=== PATIENT | male | born 1940 | race Caucasian/White ===

== ENCOUNTER 2019-01-08 06:43 | Day surgery (SDC) | payer MEDICARE, OTHER ==
[2019-01-08] VITALS (8 sets, daily range): BP systolic 127–164; BP diastolic 42–88
[~2019-01-08] VITALS: Ht 177.8 cm; Wt 116.8 kg
[~2019-01-08 06:43] MED LIST: ASPI81TA52 PO; CITA-311 PO; FLO0.4C PO; FURO40TA4 PO; GLIP5TAB13 PO; LISI10TA4 PO; METF500T PO; SIMV40TA4 PO
[2019-01-08] MEDS ORDERED: normal saline 1000ml 1,000 ML IV PRN (07:10)
[2019-01-08] MEDS ORDERED: SITA50TA PO (07:20)
[2019-01-08] MEDS ORDERED: CLOP75TA15 PO (07:20)
[2019-01-08 08:00] LABS: BASOPHILS # (AUTO) 0.1 X10'3 (0-0.2); BASOPHILS % (AUTO) 0.7 % (0-1); EOSINOPHILS # (AUTO) 0.5 X10'3 (0-0.9); EOSINOPHILS % (AUTO) 5.6 % (0-6); HEMATOCRIT 33.4 % (42.0-52.0); HEMOGLOBIN 10.8 g/dl (14.0-17.9); LYMPHOCYTES # (AUTO) 1.3 X10'3 (1.1-4.8); LYMPHOCYTES % (AUTO) 14.4 % (21-51); MEAN CORPUSCULAR HEMOGLOBIN 29.4 PG (27.0-31.0); MEAN CORPUSCULAR HGB CONC 32.3 g/dL (33.0-36.5); MEAN CORPUSCULAR VOLUME 91.2 FL (78-98); MEAN PLATELET VOLUME 8.8 FL (7.4-10.4); MONOCYTES # (AUTO) 0.8 X10'3 (0-0.9); MONOCYTES % (AUTO) 8.2 % (2-12); NEUTROPHILS # (AUTO) 6.6 X10'3 (1.8-7.7); NEUTROPHILS % (AUTO) 71.1 % (42-75); PLATELET COUNT 270 X10'3 (140-440); RED BLOOD COUNT 3.66 X10'6 (4.70-6.10); RED CELL DISTRIBUTION WIDTH 14.3 % (11.5-14.5); WHITE BLOOD COUNT 9.2 X10'3 (4.5-11.0)
[2019-01-08] MEDS ORDERED: heparin 1,000 UNITS/NS 500ml 500 ML ICATH ONE (08:15)
[2019-01-08] MEDS ORDERED: LIDOcaine 1%/PF 5ML 10 MG/ML VIAL SQ ONE (08:15)
[2019-01-08] MEDS ORDERED: fentaNYL/PF 50MCG/1 ML 2ML syringe IV PRN (08:15)
[2019-01-08] MEDS ORDERED: midazolam 2 mg/2 ml injection IV PRN (08:15)
[2019-01-08 08:17] LABS: ALBUMIN 3.4 G/DL (3.4-5.0); ANION GAP 8 (8-16); BLOOD UREA NITROGEN 28 MG/DL (7-18); BUN/CREATININE RATIO 16.9 (5.4-32.0); CALCIUM 8.6 MG/DL (8.5-10.1); CHLORIDE 108 MMOL/L (99-107); CREATININE 1.66 MG/DL (0.60-1.10); GLUCOSE 98 MG/DL (70-104); PARTIAL THROMBOPLASTIN TIME 30 SECONDS (22-32); POTASSIUM 4.8 MMOL/L (3.5-5.1); SODIUM 142 MMOL/L (135-145); eGFR 40 ML/MIN
[2019-01-08] MEDS ORDERED: LIDOcaine 1%/PF 5ML 10 MG/ML VIAL ONE ×2 (08:21→10:24)
[2019-01-08] MEDS ORDERED: heparin 1,000unit/ml 10ml vial 10 ML ONE (08:21)
[2019-01-08] MEDS ORDERED: fentaNYL/PF 50MCG/1 ML 2ML syringe ONE ×3 (08:22→09:59)
[2019-01-08] MEDS ORDERED: iohexol 300mg/ml 100ml inj. ONE (08:22)
[2019-01-08] MEDS ORDERED: midazolam 2 mg/2 ml injection ONE ×3 (08:22→09:59)
[2019-01-08] MEDS ORDERED: heparin 1,000 UNITS/NS 500ml 500 ML ONE (08:22)
[2019-01-08] MEDS ORDERED: normal saline 1000ml 1,000 ML IV SCH (10:52)
--- NOTE | 2019-01-08 11:10 | NUR ---
ASSISTED PT WITH BREAKFAST TRAY. PT ATE 100%. 250ML FLUID INTAKE.
--- NOTE | 2019-01-08 11:15 | NUR ---
LATE ENTRY: PT POSTERIOR TIBIA AND DORSALIS PEDIS PULSES CONFIRMED BY DOPPLER, BRISK, BILATERALLY. DRSG HAS MINIMAL DRAINAGE.
--- NOTE | 2019-01-08 11:30 | NUR ---
LATE ENTRY: PT POSTERIOR TIBIA AND DORSALIS PEDIS PULSES CONFIRMED BY DOPPLER, BRISK, BILATERALLY. DRSG HAS MINIMAL DRAINAGE.
--- NOTE | 2019-01-08 11:45 | NUR ---
PT POSTERIOR TIBIA AND DORSALIS PEDIS PULSES CONFIRMED BY DOPPLER, BRISK, BILATERALLY. DRSG HAS MINIMAL DRAINAGE.
--- NOTE | 2019-01-08 12:00 | NUR ---
PT BILATERAL POSTERIOR TIBIA AND DORSALIS PEDIS PULSES CONFIRMED BY DOPPLER, BRISK. DRSG HAS MINIMAL DRAINAGE.
--- NOTE | 2019-01-08 12:15 | NUR ---
PT POSTERIOR TIBIA AND DORSALIS PEDIS PULSES CONFIRMED BY DOPPLER, BRISK, BILATERALLY. DRSG HAS MINIMAL DRAINAGE.
--- NOTE | 2019-01-08 12:46 | NUR ---
PT BILATERAL POSTERIOR TIBIA AND DORSALIS PEDIS PULSES CONFIRMED BY DOPPLER, BRISK. DRSG HAS MINIMAL DRAINAGE.
--- NOTE | 2019-01-08 12:48 | NUR ---
BROUGHT PT SNACKS, CHEESE STICK, APPLE SAUCE AND JUICE. 150ML INTAKE.
--- NOTE | 2019-01-08 13:10 | NUR ---
pt incontinent. changed linen and gown.
--- NOTE | 2019-01-08 13:20 | NUR ---
pt groin shaung changed by sterile technique. Shaung CD&I.
--- NOTE | 2019-01-08 13:24 | NUR ---
contacted of patient per pt request. she is aware of dc time and is on her way, "in a few minutes."
--- NOTE | 2019-01-08 13:46 | NUR ---
lATE ENTRY: PT POSTERIOR TIBIA AND DORSALIS PEDIS PULSES CONFIRMED BY DOPPLER, BRISK, BILATERALLY. DRSG HAS MINIMAL DRAINAGE.
== END 2019-01-08 14:15 | disposition home or self-care (01) ==
LOC: SSTAY O 06:43
PROVIDERS: ATTEND Radiology Vascular & Interventional Radiology
DX: I70.313 Atherosclerosis of unspecified type of bypass graft(s) of the extremities with intermittent claudication, bilateral legs (principal); E11.9 Type 2 diabetes mellitus without complications; F17.210 Nicotine dependence, cigarettes, uncomplicated; Z79.01 Long term (current) use of anticoagulants; L97.829 Non-pressure chronic ulcer of other part of left lower leg with unspecified severity; Z88.0 Allergy status to penicillin; Z79.82 Long term (current) use of aspirin; Z79.899 Other long term (current) drug therapy
CPT/HCPCS: 36415; 37225; 80048; 82948; 85025; 85347; 85610; 85730; 99152; 99153; C1725; C1760; C1769; C1885; C1894; J1644; J2250; J3010; J7030; Q9967

== ENCOUNTER 2019-05-20 05:29 | Day surgery (SDC) | payer MEDICARE, OTHER ==
[~2019-05-20] VITALS: Ht 177.8 cm; Wt 119.0 kg
[2019-05-20] VITALS (11 sets, daily range): BP systolic 84–159; BP diastolic 38–90
[~2019-05-20 05:29] MED LIST changes: +CLOP75TA15 PO; +SIMV-45 PO; -SIMV40TA4 PO; +SITA50TA PO
[2019-05-20] MEDS ORDERED: normal saline 1000ml 1,000 ML IV SCH ×3 (06:20→10:31)
[2019-05-20 06:53] LABS: BASOPHILS % (AUTO) 0.2 % (0-1); EOSINOPHILS # (AUTO) 0.5 X10'3 (0-0.9); EOSINOPHILS % (AUTO) 5.6 % (0-6); HEMATOCRIT 36.2 % (42.0-52.0); HEMOGLOBIN 11.8 g/dl (14.0-17.9); LYMPHOCYTES # (AUTO) 1.7 X10'3 (1.1-4.8); LYMPHOCYTES % (AUTO) 17.7 % (21-51); MEAN CORPUSCULAR HEMOGLOBIN 28.5 PG (27.0-31.0); MEAN CORPUSCULAR HGB CONC 32.7 g/dL (33.0-36.5); MEAN CORPUSCULAR VOLUME 87.2 FL (78-98); MEAN PLATELET VOLUME 8.5 FL (7.4-10.4); MONOCYTES # (AUTO) 0.8 X10'3 (0-0.9); MONOCYTES % (AUTO) 8.4 % (2-12); NEUTROPHILS # (AUTO) 6.4 X10'3 (1.8-7.7); NEUTROPHILS % (AUTO) 68.1 % (42-75); PLATELET COUNT 279 X10'3 (140-440); RED BLOOD COUNT 4.15 X10'6 (4.70-6.10); RED CELL DISTRIBUTION WIDTH 15.2 % (11.5-14.5); WHITE BLOOD COUNT 9.4 X10'3 (4.5-11.0)
[2019-05-20 06:55] LABS: ALBUMIN 3.2 G/DL (3.4-5.0); ANION GAP 8 (8-16); BLOOD UREA NITROGEN 28 MG/DL (7-18); BUN/CREATININE RATIO 18.8 (5.4-32.0); CALCIUM 8.7 MG/DL (8.5-10.1); CHLORIDE 108 MMOL/L (99-107); CREATININE 1.49 MG/DL (0.60-1.10); GLUCOSE 104 MG/DL (70-104); POTASSIUM 4.3 MMOL/L (3.5-5.1); SODIUM 140 MMOL/L (135-145); TOTAL CARBON DIOXIDE 23.7 MMOL/L (24-32); eGFR 45 ML/MIN
[2019-05-20] MEDS ORDERED: LIDOcaine 1% 30ml preserv. free vial SQ ONE (08:20)
[2019-05-20] MEDS ORDERED: midazolam 2 mg/2 ml injection IV PRN (08:20)
[2019-05-20] MEDS ORDERED: fentaNYL/PF 50MCG/1 ML 2ML syringe IV PRN (08:20)
[2019-05-20] MEDS ORDERED: fentaNYL/PF 50MCG/1 ML 2ML syringe ONE ×2 (08:21→08:56)
[2019-05-20] MEDS ORDERED: iohexol 300mg/ml 100ml inj. ONE (08:21)
[2019-05-20] MEDS ORDERED: heparin 1,000 UNITS/NS 500ml 500 ML ONE (08:21)
[2019-05-20] MEDS ORDERED: midazolam 2 mg/2 ml injection ONE ×2 (08:21→08:56)
[2019-05-20] MEDS ORDERED: LIDOcaine 1%/PF 5ML 10 MG/ML VIAL ONE (08:21)
[2019-05-20] MEDS ORDERED: LIDOcaine/PRILOcaine 5gm cream TP ONE (08:46)
[2019-05-20] MEDS ORDERED: heparin 1,000unit/ml 10ml vial 10 ML ONE (09:26)
[2019-05-20] MEDS ORDERED: hydrALAZINE 20mg/ml inj. IV ONE (10:03)
--- NOTE | 2019-05-20 12:43 | NUR ---
PT COMPLAINT OF "BLOATED" FEELING HE POINTS TO LOWER ABDOMEN. PT STATES HE HAS NOT "POOPED" TODAY. PT REFUSES TO USE A BEDPAN. PT WAS ROLLED FROM SIDE TO SIDE AND IS NOW LEANING TO HIS LEFT SIDE. STATES HE HAS SOME RELIEF. WILL CONTINUE TO MONITOR. VS CHARTED.
--- NOTE | 2019-05-20 13:56 | NUR ---
PT APPEARS TO BE RESTING COMFORTABLY, RESP EVEN, EYES CLOSED. PT TAKEN 250ML JUICE AND 250ML WATER. AND VOIDED. Addendum: 05/20/19 at 1357 by Princess Sarabia RN RAFFI SALGADO.
== END 2019-05-20 17:10 | disposition home or self-care (01) ==
LOC: SSTAY O 05:29
PROVIDERS: ATTEND Radiology Vascular & Interventional Radiology
DX: E11.51 Type 2 diabetes mellitus with diabetic peripheral angiopathy without gangrene (principal); I70.212 Atherosclerosis of native arteries of extremities with intermittent claudication, left leg; Z87.891 Personal history of nicotine dependence; Z72.89 Other problems related to lifestyle; Z88.0 Allergy status to penicillin; Z79.01 Long term (current) use of anticoagulants; Z79.84 Long term (current) use of oral hypoglycemic drugs; Z79.82 Long term (current) use of aspirin
CPT/HCPCS: 36415; 37220; 80048; 82948; 85025; 99152; 99153; C1725; C1760; C1769; C1894; J0360; J1644; J2250; J3010; J7030; Q9967; A6213

== ENCOUNTER 2023-01-17 13:37 | Emergency (ER) | payer MEDICARE, OTHER ==
[~2023-01-17] VITALS: Ht 177.8 cm; Wt 109.0 kg
[~2023-01-17 13:37] MED LIST changes: -CLOP75TA15 PO; +LISI10TA27 PO; -LISI10TA4 PO
[2023-01-17 14:07] VITALS: BP 185/66; PULSE 71; RESP 18; TEMP 98.1; O2SAT 95
[2023-01-17 14:54] LABS: BASOPHILS # (AUTO) 0.1 X10'3 (0-0.2); BASOPHILS % (AUTO) 1.4 % (0-1); EOSINOPHILS # (AUTO) 0.5 X10'3 (0-0.9); EOSINOPHILS % (AUTO) 4.7 % (0-6); HEMOGLOBIN 12.5 g/dl (14.0-17.9); MEAN CORPUSCULAR HGB CONC 32.1 g/dL (33.0-36.5); MEAN CORPUSCULAR VOLUME 90.5 FL (78-98); MEAN PLATELET VOLUME 8.5 FL (7.4-10.4); MONOCYTES # (AUTO) 0.9 X10'3 (0-0.9); MONOCYTES % (AUTO) 8.7 % (2-12); NEUTROPHILS # (AUTO) 7.1 X10'3 (1.8-7.7); NEUTROPHILS % (AUTO) 66.2 % (42-75); PLATELET COUNT 305 X10'3 (140-440); RED BLOOD COUNT 4.31 X10'6 (4.70-6.10); RED CELL DISTRIBUTION WIDTH 15.2 % (11.5-14.5); WHITE BLOOD COUNT 10.8 X10'3 (4.5-11.0)
[2023-01-17 15:16] LABS: ALANINE AMINOTRANSFERASE 16 U/L (12-78); ALBUMIN 2.9 G/DL (3.4-5.0); ALBUMIN/GLOBULIN RATIO 0.7 (1.1-1.5); ALKALINE PHOSPHATASE 82 IU/L (46-116); ANION GAP 11 (8-16); ASPARTATE AMINO TRANSFERASE 14 U/L (10-37); BILIRUBIN,TOTAL 0.2 MG/DL (0.1-1.0); BLOOD UREA NITROGEN 57 MG/DL (7-18); BUN/CREATININE RATIO 26.3 (10.0-20.0); CALCIUM 8.7 MG/DL (8.5-10.1); CHLORIDE 113 MMOL/L (99-107); CREATININE 2.17 MG/DL (0.60-1.10); GLUCOSE 76 MG/DL (70-104); PRO BRAIN NATRIURETIC PEPTIDE 744 PG/ML (0-450); SODIUM 143 MMOL/L (135-145); TOTAL CARBON DIOXIDE 19.3 MMOL/L (24-32); TOTAL PROTEIN 6.8 G/DL (6.4-8.2); eCRCL 26 ML/MIN; eGFR 29 ML/MIN
[2023-01-17 15:27] LABS: POTASSIUM 6.2 MMOL/L (3.5-5.1)
== END 2023-01-17 18:43 | disposition left against medical advice (07) ==
LOC: ER 13:38
DX: R79.9 Abnormal finding of blood chemistry, unspecified (principal); E87.5 Hyperkalemia; Z53.21 Procedure and treatment not carried out due to patient leaving prior to being seen by health care provider
CPT/HCPCS: 36415; 71045; 80053; 83880; 84484; 85025; 93005; 99281